=== PATIENT | male | born 1955 | race Caucasian/White ===

== ENCOUNTER 2020-11-13 13:26 | Emergency (ER) | payer MEDICARE, OTHER ==
[~2020-11-13] VITALS: Ht 175.3 cm; Wt 90.9 kg
[~2020-11-13 13:26] MED LIST: AMLO-187 PO; BUSP15TA PO; DIVA-51 PO; FLUT16SP2 NS; LOVA40TA2 PO; METO1TAB7 PO; MIRT30TA3 PO; MULT-246 PO; OLAN10TA9 PO; TOPI25TA52 PO; TRAZ-118 PO
[2020-11-13 13:40] VITALS: BP 147/85
[2020-11-13] MEDS ORDERED: LIDOCAINE 2% Multi-Dose 20 ML VIAL. IJ ONE (14:15)
[2020-11-13] MEDS ORDERED: LORazepam 0.5 MG TABLET PO ONE (14:15)
--- NOTE | 2020-11-13 14:29 | ED.ADGEN ---
Past Medical History Past Medical History: High Cholesterol, Hypertension, Schizophrenia Additional Past Surgical Histo: Left hand surgery after work accident Smoking Status: Current Every Day Smoker Alcohol Use: None General Adult EDM: Chief Complaint: ANIMAL BITE HPI: HPI: Patient is a 65 year old male, brought to the emergency department by his nephew for evaluation of a dog bite to his left hand. Patient is dominantly right-handed, he reports that the family pitbull attacked him for no known reason. Patient complains of lacerations to his posterior and medial right hand. He denies any decreased range of motion, numbness, tingling, or decreased sensation of the hand. Patient is not sure when his last tetanus shot was. Patient denies any wrist or elbow pain. He currently denies any pain. Review of Systems: Review of Systems: Complete ROS is negative unless otherwise noted in HPI. Current Medications: Current Medications Medications (Trade) Dose Ordered Sig/Ketty Start Time Stop Time Status Last Admin Dose Admin Diphtheria/ Tetanus/Acell Pertussis (ADACEL TDap SYRINGE) 0.5 ml ONCE ONCE 11/13/20 14:30 11/13/20 14:31 DC 11/13/20 14:34 0.5 ML Lidocaine HCl (Lidocaine 2% 20ml Vial) 20 ml 1X ONCE 11/13/20 14:15 11/13/20 14:16 DC 11/13/20 14:32 20 ML Lorazepam (Ativan) 0.5 mg 1X ONCE 11/13/20 14:15 11/13/20 14:16 DC 11/13/20 14:31 0.5 MG Allergies: Allergies: Allergies Coded Allergies Type Severity Reaction Last Updated Verified lisinopril Allergy Unknown Nausea 11/13/20 Yes Physical Exam: PE: See Above Constitutional: Well developed, well nourished, no acute distress, non-toxic appearance. [] HENT: Normocephalic, atraumatic, bilateral external ears normal, nose normal. [] Eyes: PERRLA, EOMI, conjunctiva normal, no discharge. [] Neck: Normal range of motion, no stridor. [] Cardiovascular:Heart rate regular rhythm Lungs & Thorax: Respirations even and unlabored, no retractions, no respiratory distress Skin: Warm, dry, no erythema, no rash; 2 lacerations to the left hand, the posterior laceration is stellate and a total of 6 cm, the medial laceration is a flap laceration that is 2 cm x 3 cm, there is no visible foreign bodies, tendons, or ligaments at either site Extremities: Left hand: Full extension and flexion of all digits and right wrist, normal sensation, 2+ radial pulse, cap refill less than 2 seconds, no cyanosis, ROM intact Neurologic: Alert and oriented X 3, normal motor, normal sensory, no focal deficits noted. [] Psychologic: Affect normal, judgement normal, mood anxious] Current Patient Data: Vital Signs: Vital Signs Date Time Temp Pulse Resp B/P (MAP) Pulse Ox O2 Delivery O2 Flow Rate FiO2 11/13/20 13:40 98.3 70 18 147/85 (105) 96 Room Air 98.3 EKG: EKG: [] Heart Score: C/O Chest Pain: No Risk Scores: Score 0 - 3: 2.5% MACE over next 6 weeks - Discharge Home Score 4 - 6: 20.3% MACE over next 6 weeks - Admit for Clinical Observation Score 7 - 10: 72.7% MACE over next 6 weeks - Early Invasive Strategies Radiology/Procedures: Radiology/Procedures: Laceration Repair by me: Anesthesia: 2% lidocaine locally Location: Posterior left hand Tendon/Joint/Nerves: No injury Foreign body: None detected after copious irrigation and exploration with NS and chlorhexidine Technique: 6 Simple well spaced loose interrupted Sutures with 4-0 Ethilon Complexity: No subcutaneous sutures/mucosal repair/edge excision Post Closure Length: 6 cm Anesthesia: 2% lidocaine locally Location: Medial left hand Tendon/Joint/Nerves: No injury Foreign body: None detected after copious irrigation and exploration with NS and chlorhexidine Technique: 5 Simple well spaced loose interrupted Sutures with 4-0 Prolene Complexity: No subcutaneous sutures/mucosal repair/edge excision Post Closure Length: 5 cm Patient's bleeding was easily controlled in the department and there is no indication of anemia. No evidence of compartment syndrome, neurologic injury, vascular injury, open joint, tendon laceration, or foreign body. Patient is appropriate for outpatient follow up. [] [] Course & Med Decision Making: Course & Med Decision Making Pertinent Labs and Imaging studies reviewed. (See chart for details) 65-year-old male presented emergency department for evaluation of dog bite. Nursing staff reported the dog bite to local authorities. X-ray revealed no acute fractures or dislocation. Tdap was updated. Laceration repair as documented above. Prescription written for Augmentin and hydrocodone. Patient encouraged In the next 1 to 2 days for reevaluation, sutures out in 10 to 14 days, return to the ER if symptoms worsen or fever develops. Patient and his nephew verbalized an understanding of home care, medications, follow-up, and return to ED instructions and were in agreement with the plan of care. [] Dragon Disclaimer: Dragon Disclaimer: This electronic medical record was generated, in whole or in part, using a voice recognition dictation system. Departure Departure Impression: Primary Impression: Dog bite of hand without complication Additional Impression: Need for Tdap vaccination Disposition: HOME / SELF CARE / HOMELESS Condition: STABLE Referrals: MELONIE BROWN JR, MD (PCP) Patient Instructions: Animal Bite, [id number], Laceration Care, Adult, [id number] Additional Instructions: Fill the prescriptions and use them as directed. Keep the area clean and dry. You may take Tylenol or ibuprofen as needed for pain. Keep the dressing that was placed today on for 24 hours then change the dressing twice a day and apply antibiotic ointment to the area. Follow-up with your primary care doctor, or return to the emergency room in 1 to 2 days for wound reevaluation, then again and 10-14 days to have the sutures removed, sooner if you develop signs of infection including: redness, warmth, drainage, or a fever. Scripts Hydrocodone Bit/Acetaminophen (HYDROCODONE-APAP 5-325 ) 1 Tab Tablet 0.5-1 TAB PO PRN Q6HRS PRN for SEVERE PAIN 7-10, #4 TAB 0 Refills Prov: PARKER VASQUEZ LEAD INSPECTOR 11/13/20 Amoxicillin/Potassium Clav (AUGMENTIN 875-125 TABLET) 1 Each Tablet 1 TAB PO BID for 10 Days, #20 TAB 0 Refills Prov: PARKER VASQUEZ LEAD INSPECTOR 11/13/20 Attending Signature Attending Signature I have participated in the care of this patient and I have reviewed and agree with all pertinent clinical information above including history, exam, and r ecommendations. Problem Qualifiers Primary Impression: Dog bite of hand without complication Encounter type: initial encounter Laterality: left Qualified Codes: S61.452A - Open bite of left hand, initial encounter; W54.0XXA - Bitten by dog, initial encounter PARKER VASQUEZ APRN Nov 13, 2020 14:29 COLE PALOMO DO Nov 14, 2020 10:51
[2020-11-13] MEDS ORDERED: DIPH,PERTUSS(ACELL),TET VAC/PF 0.5 ML SYRINGE. VAX IM ONE (14:30)
--- NOTE | 2020-11-13 14:37 | RAD ---
XR HAND_LEFT 3 VIEWS History: Reason: DOG BITE / Spl. Instructions: / History: Technique: 3 views left hand Comparison: None. Findings: Normal alignment. No fracture. Dorsal wrist soft tissue swelling and injury with subcutaneous gas. No radiopaque foreign body. Impression: 1. Dorsal wrist soft tissue injury. No radiopaque foreign body. Electronically signed by: Gildardo Monae DO (11/13/2020 2:35 PM) [facility]
[2020-11-13] MEDS ORDERED: HYDR-2761 PO (16:16)
[2020-11-13] MEDS ORDERED: AMOX1TAB61 PO (16:16)
== END 2020-11-13 16:42 | disposition home or self-care (01) ==
LOC: ER 13:26
DX: S61.412A Laceration without foreign body of left hand, initial encounter (principal); E78.00 Pure hypercholesterolemia, unspecified; I10 Essential (primary) hypertension; F20.9 Schizophrenia, unspecified; F17.200 Nicotine dependence, unspecified, uncomplicated; Z98.890 Other specified postprocedural states; Z88.8 Allergy status to other drugs, medicaments and biological substances; W54.0XXA Bitten by dog, initial encounter; Y93.89 Activity, other specified; Y92.89 Other specified places as the place of occurrence of the external cause; Y99.8 Other external cause status
CPT/HCPCS: 12004; 73130; 90471; 90715; 99283